=== PATIENT | female | born 1970 | race Caucasian/White ===

== ENCOUNTER 2018-05-16 18:20 | Emergency (ER) | payer BC ==
[~2018-05-16] VITALS: Ht 152.4 cm; Wt 59.1 kg
[2018-05-16 18:22] VITALS: TEMP 98
[2018-05-16 18:46] LABS: BASO % 0.4 % (0.0-2.0); EOS # 0.1 (0.0-0.7); GRAN # 7.3 (1.4-6.5); GRAN % 66.2 % (42.2-75.2); HEMOGLOBIN 13.1 g/dl (12.5-16.0); LYMPH # 2.3 (1.2-3.4); LYMPH % 21.3 % (20.0-51.0); MEAN CELL VOLUME 83 fl (80.0-100.0); MEAN CORPUSCULAR HEMOGLOBIN 30 pg (27.0-31.0); MEAN CORPUSCULAR HGB CONC 36 g/dl (33.0-37.0); MEAN PLATELET VOLUME 9.4 fl (7.4-10.4); MONO # 1.2 (0.1-0.6); MONO % 10.9 % (1.7-9.3); PLATELET COUNT 333 K/mm3 (130-400); RED BLOOD COUNT 4.43 M/mm3 (4.10-5.30); REDCELL DISTRIBUTION WIDTH-CV 12.7 % (11.5-14.5)
[2018-05-16 18:55] LABS: ALANINE AMINOTRANSFERASE 22 U/L (9-52); ALKALINE PHOSPHATASE 78 U/L (50-136); ANION GAP 9 mmol/L (7-16); AST,SGOT 19 U/L (15-37); BILIRUBIN,TOTAL 0.4 mg/dL (0.0-1.0); BLOOD UREA NITROGEN 15 mg/dL (7-17); CALCIUM 9.6 mg/dL (8.4-10.2); CARBON DIOXIDE 23 mmol/L (22-30); CHLORIDE 105 mmol/L (98-107); CREATININE, serum 0.57 (0.52-1.25); GLUCOSE 89 mg/dL (74-106); MAGNESIUM 1.8 mg/dL (1.6-2.3); POTASSIUM 3.9 mmol/L (3.4-5.0); SODIUM 137 mmol/L (137-145); TOTAL PROTEIN 6.8 gm/dL (6.4-8.2)
[2018-05-16 18:59] LABS: HEMATOCRIT 36.8 % (37.0-47.0)
[2018-05-16 19:07] LABS: TROPONIN-I < 0.012 ng/mL (0.000-0.035)
[2018-05-16] MEDS ORDERED: PROZAC 10MG10 MG PO (20:04)
[2018-05-16] MEDS ORDERED: ZEBETA 5MG5 MG PO (20:05)
[2018-05-16] MEDS ORDERED: BETAPACE AF160 MG (20:05)
[2018-05-16] MEDS ORDERED: PRIL40 PO (20:06)
[2018-05-16 21:00] VITALS: BP 101/81; PULSE 121
== END 2018-05-16 21:02 | disposition short-term general hospital (02) ==
LOC: COL.ER 18:20
PROVIDERS: Emergency Medicine
DX: I48.2 Chronic atrial fibrillation (principal); F32.9 Major depressive disorder, single episode, unspecified; E78.5 Hyperlipidemia, unspecified; Z90.710 Acquired absence of both cervix and uterus
CPT/HCPCS: J1650; J7030

== ENCOUNTER 2019-01-05 06:09 | Day surgery (SDC) | payer BC ==
[~2019-01-05] VITALS: Ht 152.4 cm; Wt 64.1 kg
[~2019-01-05 06:09] MED LIST: BETAPACE AF160 MG; PRIL40 PO; PROZAC 10MG10 MG PO; ZEBETA 5MG5 MG PO
[2019-01-05 06:35] VITALS: BP 118/81; PULSE 89; TEMP 98.1
[2019-01-05] MEDS ORDERED: BETAPACE 120MG120 MG PO (06:41)
[2019-01-05] MEDS ORDERED: PROZAC 20MG20 MG PO (06:42)
[2019-01-05] MEDS ORDERED: VITAMIND3 5000 PO (06:43)
[2019-01-05] MEDS ORDERED: D3-5050000 IU PO (06:44)
[2019-01-05] MEDS ORDERED: OMEGA-3 1000 MG1 CAP PO (06:45)
[2019-01-05] MEDS ORDERED: METAMUCIL MUL0.52 GM PO (06:46)
[2019-01-05 08:15] VITALS: BP 116/76; PULSE 86; TEMP 97.5
--- NOTE | 2019-01-05 08:15 | NUR ---
[facility] [place] AND ASSISTED TO RECLINER. ONCE IN RECLINER PATIENT BACK TO SLEEP. AT BEDSIDE.
[2019-01-05 08:30] VITALS: BP 110/77; PULSE 97
--- NOTE | 2019-01-05 08:30 | NUR ---
PATIENT MORE AWAKE TAKING SIPS OF WATER.
[2019-01-05 08:45] VITALS: BP 105/69; PULSE 88
--- NOTE | 2019-01-05 08:45 | NUR ---
DR GARNER INTO TALK WITH PATIENT AND .
[2019-01-05 09:00] VITALS: BP 99/71; PULSE 88
[2019-01-05 09:10] VITALS: BP 108/77; PULSE 75
--- NOTE | 2019-01-05 09:10 | NUR ---
RECEIVED DISCHARGE INSTRUCTIONS AND VERBALIZED UNDERSTANDING. DISCONTINUED IV AND INT- CATHETER INTACT. PATIENT GETTING DRESSED
--- NOTE | 2019-01-05 09:20 | NUR ---
DISCHARGED PER WC BY NURSING STAFF TO PRIVATE CAR IN CARE OF -MUNDO.
== END 2019-01-05 09:25 | disposition home or self-care (01) ==
LOC: SDCO 06:09
DX: Z12.11 Encounter for screening for malignant neoplasm of colon (principal); D12.4 Benign neoplasm of descending colon; K57.30 Diverticulosis of large intestine without perforation or abscess without bleeding; K29.50 Unspecified chronic gastritis without bleeding; K31.7 Polyp of stomach and duodenum; K21.9 Gastro-esophageal reflux disease without esophagitis; K21.0 Gastro-esophageal reflux disease with esophagitis; K22.70 Barrett's esophagus without dysplasia; K44.9 Diaphragmatic hernia without obstruction or gangrene; E78.00 Pure hypercholesterolemia, unspecified; I48.91 Unspecified atrial fibrillation; Z88.2 Allergy status to sulfonamides; Z83.79 Family history of other diseases of the digestive system; Z83.71 Family history of colonic polyps
CPT/HCPCS: J2250; J2405; J3010; J7030

== ENCOUNTER → 2019-12-25 | Outpatient (CLI) | payer BC ==
[~2019-12-25] MED LIST changes: +BETAPACE 120MG120 MG PO; +D3-5050000 IU PO; +METAMUCIL MUL0.52 GM PO; +OMEGA-3 1000 MG1 CAP PO; +PROZAC 20MG20 MG PO; +VITAMIND3 5000 PO
== END ==
LOC: MC.RAD 10:57
DX: Z12.31 Encounter for screening mammogram for malignant neoplasm of breast (principal)

== ENCOUNTER → 2022-04-17 | Outpatient (CLI) | payer BC | LOC: MC.RAD 15:34 | DX: Z12.31 Encounter for screening mammogram for malignant neoplasm of breast (principal) ==

== ENCOUNTER → 2023-06-25 | Outpatient (CLI) | payer BC | LOC: MC.RAD 12:59 | DX: Z12.31 Encounter for screening mammogram for malignant neoplasm of breast (principal) ==